=== PATIENT | female | born 1990 | race Caucasian/White ===

== ENCOUNTER → 2016-03-23 | Outpatient (CLI) | payer OTHER ==
[~2016-03-23] MED LIST: ACET50TA PO; IBUP60TA PO; PERC5TAB6 PO; VITAPRTA PO
== END ==
LOC: M LAB 07:14
PROVIDERS: ATTEND Advanced Practice Midwife
DX: Z36 Encounter for antenatal screening of mother (principal)

== ENCOUNTER → 2016-05-06 | Outpatient (REF) | payer OTHER | LOC: M LAB REF 13:26 | PROVIDERS: ATTEND Specialist | DX: Z36 Encounter for antenatal screening of mother (principal); Z3A.00 Weeks of gestation of pregnancy not specified ==

== ENCOUNTER 2016-06-01 11:16 | Outpatient (CLI) | payer OTHER ==
[~2016-06-01] VITALS: Ht 157.5 cm; Wt 70.0 kg
[2016-06-01] MEDS ORDERED: ALB2.5NEB INH (11:25)
[2016-06-01 11:27] VITALS: BP 118/72
[2016-06-01] MEDS ORDERED: ARNU1INH IN (11:27)
== END 2016-06-01 12:40 | disposition home or self-care (01) ==
LOC: M LDO 11:16
PROVIDERS: ATTEND Advanced Practice Midwife
DX: O99.89 Other specified diseases and conditions complicating pregnancy, childbirth and the puerperium (principal); N89.8 Other specified noninflammatory disorders of vagina; Z3A.39 39 weeks gestation of pregnancy

== ENCOUNTER 2016-06-02 18:14 | Inpatient (IN) | payer OTHER ==
[~2016-06-02] VITALS: Ht 160 cm; Wt 71.4 kg
[~2016-06-02 18:14] MED LIST changes: +ALB2.5NEB INH; +ARNU1INH IN
[2016-06-02 18:24] VITALS: BP 129/78
[2016-06-02 18:55] LABS: MEAN CORPUSCULAR HEMOGLOBIN 26.5 pg (27.0-33.0); MEAN CORPUSCULAR HGB CONC 33.2 g/dl (32.0-36.5); MEAN CORPUSCULAR VOLUME 79.7 fl (80.0-96.0); RED CELL DISTRIBUTION WIDTH 13.8 % (11.5-14.5); WHITE BLOOD COUNT 13.6 K/mm3 (4.0-10.0)
--- NOTE | 2016-06-02 18:59 | HPE ---
DATE OF ADMISSION: 06/02/2016 HISTORY: 26-year-old 5, para 3-0-1-3 female at 39-2/7 weeks gestation by 6 week ultrasound, estimated date of confinement (EDC) of 06/06/2016, presents with regular contractions every 4-5 minutes for the last 2 hours prior to arrival. She believes she is leaking fluid when she got to the hospital. Contractions have increased in intensity. MEDICAL HISTORY: 1. Asthma. 2. Depression and anxiety. SURGICAL HISTORY: 1. Laparoscopy with removal of intraperitoneal intrauterine device (IUD) July 2015. ALLERGIES: No known drug allergies. SOCIAL HISTORY: The patient denies cigarettes, alcohol, or drug use. Father of the baby is present and involved. MEDICATIONS: - albuterol - Ellipta COURSE: The patient initiated care on 10/29/2015 at 8 weeks gestation. First trimester blood pressure was 110/60. She had worsening of asthma in early but this resolved with medication treatment. The remainder of her course was unremarkable. OBSTETRICAL HISTORY: 1. March 2010 - 40 weeks vaginal delivery 6 pound male infant. 2. April 2014 - 40 weeks vaginal delivery 6 pound . 3. April 2011 - miscarriage. 4. May 2015 - 40 weeks vaginal delivery 7 pound 3 ounce male infant. PE: AVSS Appears uncomfortable HEENT: WNL Lungs: CTA CVS: RRR Abd: NT, gravid SVE: 7 cm/80%/-1 toco: 2 3-4 minutes ext: NT LABORATORY DATA: Blood type AB negative, Rubella immune, RPR nonreactive, hepatitis B and C negative, HIV negative. Diabetes screen 197 with a normal 3-hour glucose tolerance test (GTT). Group B Streptococcus (GBS) negative on 05/06/2016. ASSESSMENT: 26-year-old 5, para 3 female at 39-2/7 weeks gestation presents with rupture of membranes in early labor. MTDD
[2016-06-02] MEDS ORDERED: OXYTOCIN 30 UNITS IN 0.9% NaCl 500ML IV BAG (J2590) As Ordered ONE (19:17)
[2016-06-02 19:53] VITALS: BP 112/68
[2016-06-02] MEDS ORDERED: DIBUCAINE 1% OINTMENT 30GM TOP PRN (20:00)
[2016-06-02] MEDS ORDERED: OXYTOCIN DRIP 30 UNITS in APPROPRIATE DILUENT 1 EA IV ONE (20:00)
[2016-06-02] MEDS ORDERED: DOCUSATE SODIUM 100 MG CAP PO PRN (20:00)
[2016-06-02] MEDS ORDERED: RHOGAM 300 MCG (1500 IU) INJ (J2790) IM SCH (20:00)
[2016-06-02] MEDS ORDERED: MEASLES,MUMPS,RUBELLA VACCINE INJ (MMR-II) (90707) SC SCH (20:00)
[2016-06-02] MEDS ORDERED: ONDANSETRON 4MG/2ML VIAL (J2405) IV PRN (20:00)
[2016-06-02] MEDS ORDERED: METHYLERGONOVINE MALEATE 0.2 MG TAB PO PRN (20:00)
[2016-06-02] MEDS ORDERED: ACETAMINOPHEN 500 MG TAB PO PRN (20:00)
--- NOTE | 2016-06-02 20:13 | DN ---
DATE: 06/02/2016 PREDELIVERY DIAGNOSIS: Term labor. POSTDELIVERY DIAGNOSIS: Term labor. PROCEDURE: Spontaneous vaginal delivery. MANAGER MATERIAL: Dr. Abdulaziz Benites. ANESTHESIA: None. ESTIMATED BLOOD LOSS: 300 mL. FINDINGS: A 7 pound 6 ounce female , 3336 grams, scores 8 and 9. DELIVERY SUMMARY: After a short second stage, the patient had spontaneous delivery of a 7 pound 6 ounce female infant with no delivery anesthesia. There was no nuchal cord. The shoulders delivered spontaneously with ease. The cried spontaneous and was handed to the mother. The cord was double clamped and cut. The placenta was delivered spontaneous and appeared to be intact. There were no vaginal lacerations present. The patient received intravenous (IV) Pitocin immediately after delivery of the placenta.
[2016-06-02 22:32] VITALS: BP 117/64
[2016-06-03] MEDS: IBUPROFEN 800 MG TAB PO PRN ×2 (01:06→16:33)
[2016-06-03 06:07] VITALS: BP 105/71
[2016-06-03] MEDS: PRENATAL VITAMIN TAB PO SCH (08:24)
[2016-06-03 18:06] VITALS: BP 112/73
[2016-06-04 05:36] VITALS: BP 98/60
[2016-06-04] MEDS: PRENATAL VITAMIN TAB PO SCH (08:41)
[2016-06-04] MEDS ORDERED: IBUP-1114 PO (09:18)
[2016-06-04] MEDS ORDERED: COLA100C PO (09:18)
[2016-06-04] MEDS ORDERED: ACET50TA PO (09:18)
== END 2016-06-04 10:35 | disposition home or self-care (01) | DRG 560 ==
LOC: M LDO 18:14 → M LDI 18:16 → M OBS 21:31
PROVIDERS: ADMIT Specialist; ATTEND Specialist
PROC: 10E0XZZ Delivery of Products of Conception, External Approach (ICD-10-PCS; principal; 2016-06-02)
DX: O99.52 Diseases of the respiratory system complicating childbirth (principal); J45.909 Unspecified asthma, uncomplicated; Z3A.29 29 weeks gestation of pregnancy; Z37.0 Single live birth

== ENCOUNTER → 2016-07-16 | Outpatient (REF) | payer OTHER ==
[~2016-07-16] MED LIST changes: +COLA100C3 PO; +IBUP-1114 PO; +NORE0.353 PO; +ZOLO25TA PO
[2016-07-16 14:28] LABS: THYROXINE (T4) 7.4 UG/DL (4.5-12.0)
== END ==
LOC: M LABSMT 13:33
PROVIDERS: ATTEND Advanced Practice Midwife
DX: F32.89 Other specified depressive episodes (principal)

== ENCOUNTER → 2016-07-30 | Day surgery (SDC) | payer OTHER ==
[~2016-07-30] VITALS: Ht 157.5 cm; Wt 63.5 kg
[~2016-07-30] MED LIST changes: +ALBUTEROL SULFATE 2.5 MG/0.5 ML INH NEB SOLN As Ordered ONE; +ALBUTEROL SULFATE 2.5 MG/0.5 ML INH NEB SOLN INH ONE; +BUPIVACAINE HCL 0.25% 30 ML VIAL As Ordered ONE; +GLYCOPYRROLATE INJ 0.2 MG/ML 2 ML VIAL As Ordered ONE; +HYDROmorphone HCL 1 MG/ML SYRINGE (J1170) IV PRN; +HYDROmorphone HCL 2 MG/ML 1ML VIAL (J1170) As Ordered ONE; +LIDOCAINE 2% INJ 100 MG/5 ML SDV (FOR ANES.) As Ordered ONE; +LR 1,000 ML IV ONE; +LR 1,000 ML IV SCH; +MIDAZOLAM INJ 2 MG/2 ML VIAL (J2250) As Ordered ONE; +NEOSTIGMINE 1MG/ML 5 ML SYRINGE (J2710) As Ordered ONE; +ONDANSETRON 4MG/2ML VIAL (J2405) As Ordered ONE; +ONDANSETRON 4MG/2ML VIAL (J2405) IV PRN; +PERCOCET 5MG/325MG TAB PO PRN; +PROPOFOL 200 MG/20 ML VIAL As Ordered ONE; +ROCURONIUM BROMIDE 50 MG/5 ML VIAL As Ordered ONE; +dexameTHASONE 4 MG/ML 1ML VIAL (J1100) As Ordered ONE; +fentaNYL 100 MCG/2 ML INJECTION (J3010) As Ordered ONE
[2016-07-30 06:57] LABS: MEAN CORPUSCULAR HEMOGLOBIN 27.4 pg (27.0-33.0); MEAN CORPUSCULAR VOLUME 80.6 fl (80.0-96.0); RED CELL DISTRIBUTION WIDTH 14.7 % (11.5-14.5); WHITE BLOOD COUNT 5.7 K/mm3 (4.0-10.0)
[2016-07-30 07:02] LABS: CONTROL LINE UCG INT CTR LINE PRESENT
[2016-07-30] MEDS: fentaNYL 100 MCG/2 ML INJECTION (J3010) IV PRN ×4 (08:44→08:59)
[2016-07-30 10:40] VITALS: BP 122/84
--- NOTE | 2016-07-31 06:58 | RO ---
DATE OF PROCEDURE: 07/30/2016 PREOPERATIVE DIAGNOSIS: Undesired fertility. POSTOPERATIVE DIAGNOSIS: Undesired fertility. PROCEDURE: Laparoscopic tubal ligation with Falope ring. SURGEON: Dr. Abdulaziz Benites METAL WORKER: ANESTHESIA: General endotracheal. ESTIMATED BLOOD LOSS: Minimal. FINDINGS: Normal pelvis. Normal upper abdomen. OPERATIVE SUMMARY: The patient was taken to the operating room where general endotracheal anesthesia was induced. She was prepped and draped in a sterile fashion in the dorsal lithotomy position. The bladder was emptied with a catheter. A Sponge-Stick was placed in the vagina to use as a manipulator. A periumbilical incision was made with a scalpel. A Veress needle was placed through this incision. In intra-abdominal location, the Veress needle was assessed with use of a saline-filled syringe. A pneumoperitoneum was created. Veress needle was removed. 5 mm trocar was inserted using Visiport. A 5 mm scope was used to visualize the abdomen and pelvis. An 8 mm suprapubic port was placed under direct visualization. Blunt probe was used to survey pelvic structures. A Falope ring was applied in the midportion of each fallopian tube without difficulty, and excellent application was noted bilaterally. Pneumoperitoneum was released. All instruments were removed. Sponge, instrument, needle counts were correct. The skin was closed with #4-0 Monocryl subcuticular sutures.
== END | disposition home or self-care (01) ==
LOC: M SDC 06:16
PROVIDERS: ATTEND Specialist
DX: Z30.2 Encounter for sterilization (principal); J45.909 Unspecified asthma, uncomplicated; F32.9 Major depressive disorder, single episode, unspecified; Z79.899 Other long term (current) drug therapy
CPT/HCPCS: 36415; 58671; 84703; 85027; A4649; J1100; J1170; J2250; J2405; J2710; J3010

== ENCOUNTER → 2016-09-10 | Outpatient (REF) | payer OTHER ==
[~2016-09-10] MED LIST changes: -ALBUTEROL SULFATE 2.5 MG/0.5 ML INH NEB SOLN As Ordered ONE; -ALBUTEROL SULFATE 2.5 MG/0.5 ML INH NEB SOLN INH ONE; -BUPIVACAINE HCL 0.25% 30 ML VIAL As Ordered ONE; -COLA100C3 PO; +COLA100C5 PO; -GLYCOPYRROLATE INJ 0.2 MG/ML 2 ML VIAL As Ordered ONE; -HYDROmorphone HCL 1 MG/ML SYRINGE (J1170) IV PRN; -HYDROmorphone HCL 2 MG/ML 1ML VIAL (J1170) As Ordered ONE; -LIDOCAINE 2% INJ 100 MG/5 ML SDV (FOR ANES.) As Ordered ONE; -LR 1,000 ML IV ONE; -LR 1,000 ML IV SCH; -MIDAZOLAM INJ 2 MG/2 ML VIAL (J2250) As Ordered ONE; -NEOSTIGMINE 1MG/ML 5 ML SYRINGE (J2710) As Ordered ONE; -ONDANSETRON 4MG/2ML VIAL (J2405) As Ordered ONE; -ONDANSETRON 4MG/2ML VIAL (J2405) IV PRN; +PERC5TAB12 PO; -PERC5TAB6 PO; -PERCOCET 5MG/325MG TAB PO PRN; -PROPOFOL 200 MG/20 ML VIAL As Ordered ONE; -ROCURONIUM BROMIDE 50 MG/5 ML VIAL As Ordered ONE; -dexameTHASONE 4 MG/ML 1ML VIAL (J1100) As Ordered ONE; -fentaNYL 100 MCG/2 ML INJECTION (J3010) As Ordered ONE
== END ==
LOC: M LAB REF 12:51
PROVIDERS: ATTEND Advanced Practice Midwife
DX: Z12.4 Encounter for screening for malignant neoplasm of cervix (principal)

== ENCOUNTER → 2018-03-13 | Outpatient (REF) | payer BC ==
[~2018-03-13] MED LIST changes: -ACET50TA PO; +MAPA500T2 PO
[2018-03-14 15:44] LABS: INFLUENZA A AMPLIFICATION NEGATIVE (NEGATIVE); INFLUENZA B AMPLIFICATION NEGATIVE (NEGATIVE)
== END ==
LOC: M LAB REF 09:59
PROVIDERS: ATTEND Physician Assistant
DX: J11.1 Influenza due to unidentified influenza virus with other respiratory manifestations (principal)

== ENCOUNTER → 2019-03-16 | Outpatient (REF) | payer BC ==
[~2019-03-16] MED LIST changes: +IBUP600T42 PO; -IBUP60TA PO
== END ==
LOC: M LAB REF 13:21
PROVIDERS: ATTEND Physician Assistant
DX: R30.0 Dysuria (principal)

== ENCOUNTER → 2019-05-04 | Outpatient (CLI) | payer BC, OTHER ==
[2019-05-06 00:06] LABS: ANA (HEP2) Negative (.); ANTI JO-1 ANTIBODIES <0.2 AI (0.0-0.9)
== END ==
LOC: M LAB 08:44
PROVIDERS: ATTEND Dermatology
DX: R21 Rash and other nonspecific skin eruption (principal)

== ENCOUNTER → 2019-05-07 | Outpatient (REF) | payer BC | LOC: M LAB REF 17:12 | PROVIDERS: ATTEND Physician Assistant Medical | DX: R50.9 Fever, unspecified (principal) ==

== ENCOUNTER → 2019-07-25 | Outpatient (REF) | payer BC, OTHER | LOC: M LAB REF 08:51 | PROVIDERS: ATTEND Dermatology | DX: D23.62 Other benign neoplasm of skin of left upper limb, including shoulder (principal) ==

== ENCOUNTER → 2021-02-23 | Outpatient (REF) | payer BC, OTHER ==
[2021-02-23 15:30] LABS: RSV AMPLIFICATION NEGATIVE (NEGATIVE)
== END ==
LOC: M LAB REF 14:19
PROVIDERS: ATTEND Physician Assistant Medical
DX: R50.9 Fever, unspecified (principal); R05.9 Cough, unspecified

== ENCOUNTER → 2021-07-13 | Outpatient (REF) | payer BC | LOC: M LAB REF 10:43 | PROVIDERS: ATTEND Physician Assistant Medical | DX: R50.9 Fever, unspecified (principal); J06.9 Acute upper respiratory infection, unspecified ==

== ENCOUNTER → 2022-08-12 | Outpatient (CLI) | payer BC, OTHER ==
[2022-08-12 10:59] LABS: APPEARANCE, URINE CLEAR (CLEAR); BACTERIA, URINE AUTO 1+ (NEGATIVE); BILIRUBIN, URINE AUTO NEGATIVE (NEGATIVE); BLOOD, URINE BLOOD NEGATIVE (NEGATIVE); COLOR, URINE YELLOW (YELLOW); GLUCOSE, URINE (UA) AUTO NEGATIVE (NEGATIVE); KETONE, URINE AUTO NEGATIVE (NEGATIVE); LEUKOCYTE ESTERASE, URINE AUTO TRACE (NEGATIVE); MUCUS, URINE SMALL (NEGATIVE); NITRITE, URINE AUTO NEGATIVE (NEGATIVE); PROTEIN, URINE AUTO NEGATIVE (NEGATIVE); RBC, URINE AUTO 1 /HPF (0-3); SPECIFIC GRAVITY URINE AUTO 1.018 (1.002-1.035); SQUAMOUS EPITHELIAL CELL UR AU 2 /HPF (0-6); UROBILINOGEN, URINE AUTO 0.2 mg/dL (0.0-2.0); WBC, URINE AUTO 0 /HPF (0-3)
[2022-08-12 11:04] LABS: BASO # 0.1 10^3/uL (0.0-0.2); EOS # 0.3 10^3/uL (0.0-0.5); HEMATOCRIT 36.2 % (36.0-47.0); HEMOGLOBIN 12.6 g/dl (12.0-15.5); LYMPH # 1.8 10^3/uL (1.5-5.0); LYMPH % 36.6 % (24.0-44.0); MEAN CORPUSCULAR HEMOGLOBIN 30.4 pg (27.0-33.0); MEAN CORPUSCULAR HGB CONC 34.8 g/dl (32.0-36.5); MEAN CORPUSCULAR VOLUME 87.4 fl (80.0-96.0); MONO # 0.2 10^3/uL (0.0-0.8); MONO % 4.8 % (2.0-8.0); NEUTROPHILS # 2.6 10^3/uL (1.5-8.5); NEUTROPHILS % 52.4 % (36.0-66.0); PLATELET COUNT, AUTOMATED 221 10^3/uL (150-450); RED BLOOD COUNT 4.14 10^6/uL (4.00-5.40)
[2022-08-12 11:24] LABS: HCG, SERUM QUALITATIVE NEGATIVE (NEGATIVE)
[2022-08-12 11:26] LABS: THYROID STIMULATING HORMONE 1.268 uIU/ML (0.55-4.78); TOTAL 25(OH) VITAMIN D 24.2 NG/ML (20.0-100.0)
[2022-08-12 11:27] LABS: FREE T4 0.89 NG/DL (0.89-1.76); VITAMIN B12 LEVEL 434 PG/ML (211-911)
[2022-08-12 11:28] LABS: ALKALINE PHOSPHATASE 49 U/L (46-116); ALT/SGPT 20 U/L (7.0-40); AST/SGOT 21 U/L (<34); BILIRUBIN,TOTAL 0.5 MG/DL (0.3-1.2); BLOOD UREA NITROGEN 15 MG/DL (9-23); CALCIUM LEVEL 8.4 MG/DL (8.5-10.1); CARBON DIOXIDE LEVEL 25 MMOL/L (20-31); CHLORIDE LEVEL 108 MMOL/L (98-107); CHOLESTEROL LEVEL 160 MG/DL (<200); CHOLESTEROL RISK RATIO 1.99 (<5); CREATININE FOR GFR 0.76 MG/DL (0.55-1.30); GLOMERULAR FILTRATION RATE > 60.0 (>60); GLUCOSE, FASTING 83 MG/DL (60-100); HDL CHOLESTEROL 80.3 MG/DL (>40); LDL CHOLESTEROL 70.3 MG/DL (<100); NON-HDL-C 79.7 MG/DL; POTASSIUM SERUM 4.2 MMOL/L (3.5-5.1); SODIUM LEVEL 140 MMOL/L (136-145); TOTAL PROTEIN 6.8 G/DL (5.7-8.2); TRIGLYCERIDES LEVEL 47 MG/DL (<150)
[2022-08-13 07:12] LABS: HOMOCYST(E)INE SERUM 8.9 umol/L (0.0-14.5)
[2022-08-18 15:09] LABS: Methylmalonic Acid 196 nmol/L (0-378)
== END ==
LOC: M LAB 09:42
PROVIDERS: ATTEND Physician Assistant
DX: Z00.00 Encounter for general adult medical examination without abnormal findings (principal); G43.109 Migraine with aura, not intractable, without status migrainosus; R53.83 Other fatigue

== ENCOUNTER 2022-09-07 20:18 | Emergency (ER) | payer BC, OTHER ==
[~2022-09-07] VITALS: Ht 157.5 cm; Wt 57.0 kg
[2022-09-07] MEDS ORDERED: ALBU8.5H (20:29)
[2022-09-07] MEDS ORDERED: SUMA25TA3 (20:29)
[2022-09-07] MEDS ORDERED: TOPI25TA10 (20:29)
[2022-09-07 21:01] LABS: BASO # 0.1 10^3/uL (0.0-0.2); BASO % 0.5 % (0.0-1.0); EOS # 0.2 10^3/uL (0.0-0.5); EOS % 2.4 % (0.0-3.0); HEMOGLOBIN 13.1 g/dl (12.0-15.5); LYMPH # 2.8 10^3/uL (1.5-5.0); LYMPH % 29.9 % (24.0-44.0); MEAN CORPUSCULAR HEMOGLOBIN 30.5 pg (27.0-33.0); MEAN CORPUSCULAR HGB CONC 35.4 g/dl (32.0-36.5); MEAN CORPUSCULAR VOLUME 86.2 fl (80.0-96.0); MONO # 0.5 10^3/uL (0.0-0.8); MONO % 4.9 % (2.0-8.0); NEUTROPHILS # 5.7 10^3/uL (1.5-8.5); NEUTROPHILS % 62.1 % (36.0-66.0); PLATELET COUNT, AUTOMATED 255 10^3/uL (150-450); RED BLOOD COUNT 4.29 10^6/uL (4.00-5.40); WHITE BLOOD COUNT 9.2 10^3/uL (4.0-10.0)
[2022-09-07 21:17] LABS: CK-MB VALUE MASS < 1.0 NG/ML (<3.6)
[2022-09-07 21:19] LABS: ALBUMIN 4.1 G/DL (3.2-5.2); ALKALINE PHOSPHATASE 54 U/L (46-116); ALT/SGPT 18 U/L (7.0-40); AST/SGOT 13 U/L (<34); BILIRUBIN,DIRECT 0.1 MG/DL (<0.4); BILIRUBIN,TOTAL 0.5 MG/DL (0.3-1.2); BLOOD UREA NITROGEN 9 MG/DL (9-23); CALCIUM LEVEL 8.8 MG/DL (8.5-10.1); CARBON DIOXIDE LEVEL 21 MMOL/L (20-31); CHLORIDE LEVEL 108 MMOL/L (98-107); CPK CREATINE PHOSPHOKINASE 65 U/L (34-145); CREATININE FOR GFR 0.78 MG/DL (0.55-1.30); GLOMERULAR FILTRATION RATE > 60.0 (>60); GLUCOSE, FASTING 111 MG/DL (60-100); MB/CK RELATIVE INDEX 1.53 (< OR =4); POTASSIUM SERUM 3.4 MMOL/L (3.5-5.1); SODIUM LEVEL 138 MMOL/L (136-145); TOTAL PROTEIN 6.8 G/DL (5.7-8.2)
[2022-09-07] MEDS ORDERED: IPRATROPIUM 0.5MG/ALBUTEROL 2.5MG INH SOL UD 3ML (DUONEB) NEB ONE (21:35)
[2022-09-07] MEDS ORDERED: ISOVUE-370 76% 100ML VIAL As Ordered ONE (21:39)
[2022-09-07 23:42] VITALS: BP 107/68; TEMP 98.2; O2SAT 99
== END 2022-09-07 23:44 | disposition home or self-care (01) ==
LOC: M ED 20:18
DX: R05.9 Cough, unspecified (principal); J45.909 Unspecified asthma, uncomplicated; F41.1 Generalized anxiety disorder; Z79.51 Long term (current) use of inhaled steroids; Z79.899 Other long term (current) drug therapy
CPT/HCPCS: 36415; 71045; 71275; 80048; 80076; 82550; 82553; 84484; 85025; 85379; 87486; 87581; 87633; 87798; 93005; 94640; 99284; Q9967

== ENCOUNTER → 2023-05-13 | Outpatient (REF) | payer BC ==
[~2023-05-13] MED LIST changes: +ALBU8.5H; +SUMA25TA3; +TOPI25TA10
== END ==
LOC: M SFHCPLAZ 10:48
PROVIDERS: ATTEND Nurse Practitioner Family
DX: R21 Rash and other nonspecific skin eruption (principal)

== ENCOUNTER → 2023-05-13 | Outpatient (CLI) | payer BC ==
[2023-05-13 17:23] LABS: BASO % 0.7 % (0.0-1.0); EOS # 0.3 10^3/uL (0.0-0.5); EOS % 4.8 % (0.0-3.0); HEMATOCRIT 37.8 % (36.0-47.0); HEMOGLOBIN 12.8 g/dl (12.0-15.5); LYMPH # 1.6 10^3/uL (1.5-5.0); MEAN CORPUSCULAR HEMOGLOBIN 30.4 pg (27.0-33.0); MEAN CORPUSCULAR HGB CONC 33.9 g/dl (32.0-36.5); MEAN CORPUSCULAR VOLUME 89.8 fl (80.0-96.0); MONO # 0.3 10^3/uL (0.0-0.8); MONO % 5.9 % (2.0-8.0); NEUTROPHILS # 3.4 10^3/uL (1.5-8.5); NEUTROPHILS % 60.4 % (36.0-66.0); PLATELET COUNT, AUTOMATED 246 10^3/uL (150-450); RED BLOOD COUNT 4.21 10^6/uL (4.00-5.40); WHITE BLOOD COUNT 5.6 10^3/uL (4.0-10.0)
[2023-05-13 17:49] LABS: C REACTIVE PROTEIN QUANTITATIV < 0.40 MG/DL (<1.0)
[2023-05-13 17:51] LABS: ALBUMIN 3.8 G/DL (3.2-5.2); ALKALINE PHOSPHATASE 48 U/L (46-116); ALT/SGPT 21 U/L (7.0-40); AST/SGOT 17 U/L (<34); BILIRUBIN,TOTAL 0.4 MG/DL (0.3-1.2); BLOOD UREA NITROGEN 11 MG/DL (9-23); CALCIUM LEVEL 8.8 MG/DL (8.5-10.1); CARBON DIOXIDE LEVEL 26 MMOL/L (20-31); CHLORIDE LEVEL 107 MMOL/L (98-107); CREATININE FOR GFR 0.67 MG/DL (0.55-1.30); ERYTHROCYTE SEDIMENTATION RATE 3 mm/hr (0-20); GLOMERULAR FILTRATION RATE > 60.0 (>60); GLUCOSE, FASTING 93 MG/DL (60-100); POTASSIUM SERUM 3.8 MMOL/L (3.5-5.1); SODIUM LEVEL 139 MMOL/L (136-145); TOTAL PROTEIN 6.7 G/DL (5.7-8.2)
[2023-05-13 18:24] LABS: HIV 1&2 SCREEN NEGATIVE (NEGATIVE)
[2023-05-13 18:30] LABS: HEPATITIS C VIRUS ABY INDEX < 0.02 INDEX (<0.8)
[2023-05-13 18:31] LABS: HEPATITIS B CORE ANTIBODY IGM NEGATIVE (NEGATIVE)
[2023-05-15 21:09] LABS: ANA (HEP2) Negative (.)
== END ==
LOC: M WUC 10:38
PROVIDERS: ATTEND Nurse Practitioner Family
DX: R21 Rash and other nonspecific skin eruption (principal)

== ENCOUNTER → 2023-05-26 | Outpatient (REF) | payer BC, OTHER | LOC: M SFHCWAGY 18:09 | PROVIDERS: ATTEND Nurse Practitioner Family | DX: Z12.4 Encounter for screening for malignant neoplasm of cervix (principal) | CPT/HCPCS: 87624; G0123 ==

== ENCOUNTER → 2024-11-07 | Outpatient (REF) | payer BC ==
[~2024-11-07] MED LIST changes: +TOPI-256; -TOPI25TA10
[2024-11-09 15:12] LABS: CANDIDA GLABRATA NAA NOT DETECTED (NOT DETECTED); TRICH VAG BY NAA NOT DETECTED (NOT DETECTED)
[2024-11-09 15:47] LABS: BVAB 2 NEGATIVE (NEGATIVE)
[2024-11-09 16:27] LABS: CHLAMYDIA TRACHOMATIS NAA NOT DETECTED (NOT DETECTED)
== END ==
LOC: M SFHCLERA 17:18
PROVIDERS: ATTEND Student in an Organized Health Care Education/Training Program
DX: R39.9 Unspecified symptoms and signs involving the genitourinary system (principal)

== ENCOUNTER → 2024-11-27 | Outpatient (REF) | payer BC | LOC: M PLALAB 09:46 | PROVIDERS: ATTEND Nurse Practitioner Family | DX: R30.0 Dysuria (principal) ==